=== PATIENT | female | born 1995 ===

== ENCOUNTER 2023-06-07 07:39 | Inpatient (IN) | payer OTHER ==
[2023-06-07] VITALS (11 sets, daily range): BP systolic 125–175; BP diastolic 59–92; O2SAT 97
[~2023-06-07] VITALS: Ht 177.8 cm; Wt 117.9 kg
[2023-06-07] MEDS ORDERED: PRENTAB9 PO (08:04)
[2023-06-07] MEDS ORDERED: HOME MED LIST COMPLETE! XX SCH (08:25)
[2023-06-07] MEDS ORDERED: LIDOCAINE 1% MDV 20ML VIAL INFIL PRN (09:20)
[2023-06-07] MEDS ORDERED: PENICILLIN G POTASSIUM 5 MU IV 5 MU in D5W MINI-BAG PLUS 100 ML IV STA ×2 (09:20→10:24)
[2023-06-07] MEDS ORDERED: NALBUPHINE HCL (10 MG/ML) 100MG/10ML MDV IV PRN (09:20)
[2023-06-07] MEDS ORDERED: METHYLERGONOVINE MALEATE 0.2MG/ML 1ML VIAL IM PRN (09:20)
[2023-06-07] MEDS ORDERED: OXYTOCIN DRIP 30 UNITS in IV 1 EA IV PRN (09:20)
[2023-06-07] MEDS ORDERED: TRANEXAMIC ACID INJection 1,000 MG in NS 100 ML IV PRN (09:20)
[2023-06-07] MEDS ORDERED: OXYTOCIN INJ 10UNITS/ML 1ML VIAL IM PRN (09:20)
[2023-06-07] MEDS ORDERED: CARBOPROST TROMETHAMINE 250 MCG/ML AMP IM PRN (09:20)
[2023-06-07] MEDS ORDERED: LACTATED RINGER'S 1000 ML IV STA (09:20)
[2023-06-07] MEDS ORDERED: PROMETHAZINE 25MG/ML 1ML VIAL IV ONE (10:00)
[2023-06-07] MEDS ORDERED: PROMETHAZINE 25MG/ML 1ML VIAL IV PRN (10:00)
[2023-06-07 10:09] LABS: BASO % 0.3 % (0.0-1.0); EOS # 0.1 10^3/uL (0.0-0.5); HEMATOCRIT 39.7 % (36.0-47.0); HEMOGLOBIN 12.2 g/dl (12.0-15.5); LYMPH # 2.1 10^3/uL (1.5-5.0); MEAN CORPUSCULAR HEMOGLOBIN 22.8 pg (27.0-33.0); MEAN CORPUSCULAR HGB CONC 30.7 g/dl (32.0-36.5); MEAN CORPUSCULAR VOLUME 74.1 fl (80.0-96.0); MONO # 0.6 10^3/uL (0.0-0.8); MONO % 4.9 % (2.0-8.0); NEUTROPHILS # 10.2 10^3/uL (1.5-8.5); NEUTROPHILS % 77.5 % (36.0-66.0); PLATELET COUNT, AUTOMATED 329 10^3/uL (150-450); RED BLOOD COUNT 5.36 10^6/uL (4.00-5.40); WHITE BLOOD COUNT 13.1 10^3/uL (4.0-10.0)
[2023-06-07] MEDS: miSOPROStol 50MCG 1/2 TABLET PO PRN ×4 (10:16→23:40)
[2023-06-07] MEDS ORDERED: PEN G POT 3,000,000 UNIT/50 ML 3,000,000 UNIT in IV 1 EA IV SCH (13:20)
[2023-06-07] MEDS: PEN G POT 3,000,000 UNIT/50 ML 3,000,000 UNIT in IV 1 EA IV SCH ×2 (14:52→18:53)
[2023-06-07] MEDS ORDERED: **PENDING PCN ENTRY XX SCH (21:00)
[2023-06-08] VITALS (49 sets, daily range): BP systolic 111–174; BP diastolic 55–105; O2SAT 96
[2023-06-08 02:59] LABS: TOTAL PROTEIN,RANDOM URINE 7.6 MG/DL (0.0-14.0)
[2023-06-08 03:04] LABS: CREATININE,RANDOM URINE 32.3 MG/DL
[2023-06-08] MEDS: miSOPROStol 50MCG 1/2 TABLET PO PRN (03:21)
[2023-06-08] MEDS ORDERED: OXYTOCIN DRIP 30 UNITS in IV 1 EA IV SCH ×2 (06:55→21:20)
[2023-06-08] MEDS: PEN G POT 3,000,000 UNIT/50 ML 3,000,000 UNIT in IV 1 EA IV SCH ×5 (08:32→23:49)
[2023-06-08] MEDS ORDERED: EPIDURAL/PCA KEYS XX PRN (09:15)
[2023-06-08] MEDS ORDERED: diphenhydrAMINE 50MG/ML VIAL IV PRN (09:15)
[2023-06-08] MEDS ORDERED: LR 500 ML IV PRN (09:15)
[2023-06-08] MEDS ORDERED: ONDANSETRON 4MG 2ML VIAL IV PRN (09:15)
[2023-06-08] MEDS ORDERED: ePHEDrine SULFATE 25 MG/5 ML(5MG/ML) SYRINGE IVP PRN (09:15)
[2023-06-08] MEDS ORDERED: NALOXONE INJ 0.4MG/1ML VIAL IV PRN (09:15)
[2023-06-08] MEDS: FENTANYL/ROPIVACAINE/NACL BAG 100 ML EPIDURAL SCH ×2 (09:40→17:43)
[2023-06-08] MEDS: LR 1,000 ML IV SCH ×3 (11:10→23:48)
[2023-06-08 13:19] LABS: ALBUMIN 2.8 G/DL (3.2-5.2); ALKALINE PHOSPHATASE 185 U/L (46-116); ALT/SGPT 29 U/L (7.0-40); AST/SGOT 16 U/L (<34); BILIRUBIN,TOTAL 0.3 MG/DL (0.3-1.2); BLOOD UREA NITROGEN 5 MG/DL (9-23); CALCIUM LEVEL 8.5 MG/DL (8.5-10.1); CARBON DIOXIDE LEVEL 23 MMOL/L (20-31); CHLORIDE LEVEL 106 MMOL/L (98-107); CREATININE FOR GFR 0.57 MG/DL (0.55-1.30); GLOMERULAR FILTRATION RATE > 60.0 (>60); GLUCOSE, FASTING 133 MG/DL (60-100); SODIUM LEVEL 138 MMOL/L (136-145); TOTAL PROTEIN 6.4 G/DL (5.7-8.2)
[2023-06-08] MEDS ORDERED: METHYLERGONOVINE MALEATE 0.2 MG TAB PO PRN (21:20)
[2023-06-08] MEDS ORDERED: ACETAMINOPHEN TAB 650MG DOSE (2X325MG) PO PRN (21:20)
[2023-06-08] MEDS ORDERED: IBUPROFEN 600MG TAB PO PRN (21:20)
[2023-06-08] MEDS ORDERED: ANUSOL HC CREAM 30GM TOP PRN (21:20)
[2023-06-08] MEDS ORDERED: RHOGAM 300MCG (1500IU) INJ IM SCH (21:20)
[2023-06-08] MEDS ORDERED: DOCUSATE SODIUM 100MG CAPSULE PO PRN (21:20)
[2023-06-08] MEDS ORDERED: DIBUCAINE 1% OINTMENT 30GM TOP PRN (21:20)
[2023-06-09] MEDS: ACETAMINOPHEN 500 MG TAB PO PRN ×4 (02:44→21:32)
[2023-06-09] MEDS: IBUPROFEN 800 MG TAB PO PRN ×3 (03:27→19:44)
[2023-06-09 06:00] VITALS: BP 135/74; O2SAT 97
[2023-06-09 07:34] LABS: HEMATOCRIT 36.7 % (36.0-47.0); HEMOGLOBIN 11.6 g/dl (12.0-15.5); MEAN CORPUSCULAR HEMOGLOBIN 23.4 pg (27.0-33.0); MEAN CORPUSCULAR HGB CONC 31.6 g/dl (32.0-36.5); PLATELET COUNT, AUTOMATED 273 10^3/uL (150-450); RED BLOOD COUNT 4.96 10^6/uL (4.00-5.40); WHITE BLOOD COUNT 18.8 10^3/uL (4.0-10.0)
[2023-06-09] MEDS: PRENATAL VITAMINS CHEWABLE TABLET PO SCH (07:50)
[2023-06-09 18:00] VITALS: BP 142/82; O2SAT 99
[2023-06-10] MEDS: ACETAMINOPHEN 500 MG TAB PO PRN (04:55)
[2023-06-10] MEDS: IBUPROFEN 800 MG TAB PO PRN (04:56)
[2023-06-10 06:07] VITALS: BP 164/90; O2SAT 98
[2023-06-10] MEDS ORDERED: MEASLES,MUMPS,RUBELLA VACCINE INJ (MMR-II) SC.IMMUN ONE (09:00)
[2023-06-10] MEDS: PRENATAL VITAMINS CHEWABLE TABLET PO SCH (09:57)
[2023-06-10] MEDS ORDERED: ACET1TAB55 PO (10:36)
[2023-06-10] MEDS ORDERED: IBUP-1022 PO (10:36)
[2023-06-10] MEDS ORDERED: COLA100C5 PO (10:36)
== END 2023-06-10 16:44 | disposition home or self-care (01) | DRG 807 ==
LOC: M LDI 07:39 → EDBD 07:39 → M OBS 06-08 23:20
PROVIDERS: ADMIT Advanced Practice Midwife; ATTEND Obstetrics & Gynecology
PROC: 3E0P7GC Introduction of Other Therapeutic Substance into Female Reproductive, Via Natural or Artificial Opening (ICD-10-PCS; 2023-06-07)
PROC: 10E0XZZ Delivery of Products of Conception, External Approach (ICD-10-PCS; principal; 2023-06-08)
PROC: 10907ZC Drainage of Amniotic Fluid, Therapeutic from Products of Conception, Via Natural or Artificial Opening (ICD-10-PCS; 2023-06-08)
DX: O48.0 Post-term pregnancy (principal); Z37.0 Single live birth; Z3A.41 41 weeks gestation of pregnancy; O99.824 Streptococcus B carrier state complicating childbirth; O13.4 Gestational [pregnancy-induced] hypertension without significant proteinuria, complicating childbirth; O76 Abnormality in fetal heart rate and rhythm complicating labor and delivery; O69.1XX0 Labor and delivery complicated by cord around neck, with compression, not applicable or unspecified